=== PATIENT | male | born 1980 | race Caucasian/White ===

== ENCOUNTER 2017-08-23 08:00 | Emergency (ER) | payer OTHER ==
[2017-08-23 08:10] VITALS: BP 132/102
--- NOTE | 2017-08-23 08:22 | ED Physician Documentation ---
PD HPI LOWER EXT INJURY - Stated complaint Stated Complaint: LEFT BIG TOE INJ - Chief complaint Chief Complaint: Ext Problem - History obtained from History obtained from: Patient - History of Present Illness PD HPI LOW EXT INJURY LOCATION: Left, Toe (great) Type of injury: Other (dropped a weight on his toe at work yesterday) Where injury occurred: Work Timing - onset: Yesterday Timing - duration: Days (1) Timing - details: Abrupt onset Pain level max: 7 Pain level now: 5 Improved by: Rest Worsened by: Moving, Palpating Associated symptoms: Swelling, Discolored (ecchymosis). No: Weakness, Numbness , Tingling Contributing factors: No: Anticoagulated Similar symptoms before: Has not had sx before Recently seen: Not recently seen Review of Systems Neurologic: denies: Focal weakness, Numbness PD PAST MEDICAL HISTORY - Past Medical History Past Medical History: No - Present Medications Home Medications: Ambulatory Orders Medication Instructions Recorded Confirmed No Known Home Medications [No 08/23/17 08/23/17 Known Home Medications] - Allergies Allergies/Adverse Reactions: Allergies Allergy/AdvReac Type Severity Reaction Status Date / Time No Known Drug Allergies Allergy Verified 08/23/17 08:07 - Social History Does the pt smoke?: No Smoking Status: Never smoker PD ED PE NORMAL - Vitals Vital signs reviewed: Yes - General General: Alert and oriented X 3, No acute distress - Extremities Extremities: Other (Left great toe - Swelling, tenderness and ecchymosis to the proximal phalanx. No subungual hematoma. Otherwise normal examination of the toe and foot. Neurovascularly intact) - Neuro Neuro: Alert and oriented X 3 - Psych Psych: Normal mood, Normal affect Results - Vitals Vitals: Vital Signs - 24 hr 08/23/17 08:07 Temperature 36.3 C L Heart Rate 66 Respiratory 18 Rate Blood Pressure 132/102 H O2 Saturation 99 Oxygen O2 Source Room air - Rads (name of study) L foot xray Radiology: Prelim report reviewed, EMP read contemporaneously, See rad report ( normal xray) PD MEDICAL DECISION MAKING - ED course Complexity details: reviewed results, re-evaluated patient, considered differential, d/w patient ED course: Patient is a 37-year-old male with a left great toe contusion. No acute findings on x-ray. Placed in a postoperative shoe. Will use Motrin and Tylenol as needed for pain at home. No subungual hematoma. Patient counseled regarding signs and symptoms for which I believe and urgent re-evaluation would be necessary. Patient with good understanding of and agreement to plan and is comfortable going home at this time This document was made in part using voice recognition software. While efforts are made to proofread this document, sound alike and grammatical errors may occur. Departure - Departure Disposition: 01 Home, Self Care Clinical Impression: Contusion of toe of left foot Qualifiers: Encounter type: initial encounter Toe: great toe Damage to nail status: without damage Qualified Code(s): S90.112A - Contusion of left great toe without damage to nail, initial encounter Condition: Good Instructions: ED Contusion Lower Ext Follow-Up: Rod Serra MD [Primary Care Provider] - Within 1 week Comments: You may use Motrin or Tylenol as needed for pain. Wear the postoperative shoe for comfort. There are no fractures on x-ray today. Discharge Date/Time: 08/23/17 09:59
--- NOTE | 2017-08-23 09:34 | XRAY Report ---
EXAM: LEFT FOOT RADIOGRAPHY EXAM DATE: 08/23/2017 08:36 AM. CLINICAL HISTORY: Weight dropped on L great toe yesterday. Bruising COMPARISON: None. TECHNIQUE: 3 views. FINDINGS: Bones: No fractures . Bone island or enchondroma first metatarsal. Spur anterior talus Joints: Normal. No subluxations. Soft Tissues: Normal. No soft tissue swelling. IMPRESSION: Negative for fracture [facility] Referring Provider Line: [phone] SITE ID: [id number]
--- NOTE | 2017-08-23 09:34 | XRAY Preliminary Report ---
Exam: XR FOOT 3 VIEW LT IMPRESSION: Negative for fracture [facility] SITE ID: [id number]
== END 2017-08-23 09:59 | disposition home or self-care (01) ==
LOC: ED 08:00
DX: S90.112A Contusion of left great toe without damage to nail, initial encounter (principal); W22.8XXA Striking against or struck by other objects, initial encounter; Y99.0 Civilian activity done for income or pay
CPT/HCPCS: 99283